=== PATIENT | female | born 1980 | race African-American/Black ===

== ENCOUNTER 2016-07-29 14:15 | Emergency (ER) | payer MEDICAID ==
[~2016-07-29] VITALS: Ht 167.6 cm; Wt 106.5 kg
[~2016-07-29 14:15] MED LIST: ALBU0.086 NEB; AZIT250T43 PO; IPRAAER IN; OSEL75 PO
[2016-07-29 14:20] VITALS: BP 132/94; PULSE 122; RESP 24; TEMP 98.2; O2SAT 90
[2016-07-29 15:47] VITALS: PULSE 100; RESP 22; O2SAT 99
[2016-07-29] MEDS ORDERED: DEXAMETHASONE SOD PHOS 4 MG/ML VIAL IM ONE (16:00)
--- NOTE | 2016-07-29 16:01 | PD ---
HPI Chief Complaint: Respiratory Distress Time Seen by Provider: 15:59 Travel History International Travel<30 days: No Contact w/Intl Traveler<30days: No Traveled to known affect area: No History of Present Illness HPI 35-year-old female presents to the emergency department for evaluation of cough , congestion, intermittent shortness of breath and wheezing that started 1 week ago. She states she has a history of asthma and bronchitis. She states she'll get these symptoms approximately every 3 months. However, her symptoms are typically worse because she waits longer. The patient denies any fevers or chills. She denies any chest pain. No abdominal pain. No vomiting. Patient states she normally gets a nebulizer treatment and injection of steroids. Patient states her symptoms are worse because she had to walk to go to a family members doctors appointment today. She denies any chance of . No other complaints. PFSH Past Medical History Diminished Hearing: No Respiratory: Yes (ASTHMA) Social History Alcohol Use: Yes (3 xs weekly) Tobacco Use: No Substance Use: No Allergies-Medications (Allergen,Severity, Reaction): Coded Allergies: Penicillin (Verified Allergy, Intermediate, 07/29/16) Reported Meds & Prescriptions Reported Meds & Active Scripts Active Reported Albuterol Neb (Albuterol Sulfate) 2.5 Mg/3 Ml Neb 2.5 Mg NEB Q4HR NEB PRN Combivent Respimat Inh (Ipratropium-Albuterol Inh) 20-100 Retirement/Act Aero 1 Puff INH QID Review of Systems Except as stated in HPI: all other systems reviewed are Neg Physical Exam Narrative GENERAL: Well-developed well-nourished female patient, ambulatory. Afebrile. SKIN: Warm and dry. HEAD: Normocephalic. Atraumatic. ENT: Mucosa pink and moist. No erythema or exudates. No uvular edema. No uvular , palatal, or tonsillar deviation. Airway patent. Nasal turbinates appear normal without nasal blood, purulent drainage or septal hematoma. Bilateral tympanic membranes are clear without erythema or perforation. EYES: No scleral icterus. No injection or drainage. NECK: Supple, trachea midline. No JVD or lymphadenopathy. CARDIOVASCULAR: Regular rate and rhythm without murmurs, gallops, or rubs. RESPIRATORY: Breath sounds equal bilaterally. No accessory muscle use. Lungs sounds with slight expiratory wheezes noted. GASTROINTESTINAL: Abdomen soft, non-tender, nondistended. MUSCULOSKELETAL: No cyanosis, or edema. BACK: Nontender without obvious deformity. No CVA tenderness. Data Data Last Documented VS Vital Signs Date Time Temp Pulse Resp B/P Pulse Ox O2 Delivery O2 Flow Rate FiO2 07/29/16 15:47 100 22 99 07/29/16 14:20 98.2 132/94 Room Air Orders Chest, Single Ap (07/29/16 15:59) Albuterol-Ipratropium Neb (Duoneb Neb) (07/29/16 16:00) Dexamethasone Inj (Decadron Inj) (07/29/16 16:00) [facility] Medical Decision Making Medical Screen Exam Complete: Yes Emergency Medical Condition: Yes Medical Record Reviewed: Yes Differential Diagnosis Last Impressions Chest X-Ray 07/29/16 9795 Signed Impressions: Service Date/Time: Friday, July 29, 2016 16:01 - CONCLUSION: No acute disease. Jorje Cr MD Narrative Course 35-year-old female presents to the emergency department for evaluation of cold symptoms for one week. Patient has dry cough on exam, but does appear well. DuoNeb 3 and dexamethasone 8 mg IM are ordered and pending. Chest x-ray is ordered and pending. Chest x-ray shows no acute disease. Upon reexamination, lungs sounds are clear to auscultation. Patient states she feels much better. Patient was discharged prescription for an albuterol inhaler, prednisone, azithromycin. She is encouraged to follow-up with her primary care physician. She is to return for any acute worsening of symptoms. Patient verbalizes agreement and understanding.. Diagnosis Primary Impression: URI (upper respiratory infection) Qualified Code: J06.9 - Upper respiratory tract infection, unspecified type Referrals: Primary Care Physician call for appointment Patient Instructions: General Instructions, Upper Respiratory Infection (ED) Additional Instructions: Take antibiotic as directed until gone. Albuterol inhaler as directed as needed for shortness of breath/wheezing. Take prednisone as directed until gone. Start this tomorrow. Follow-up with your primary care physician. Return to the emergency department for any acute worsening of symptoms. Med/Other Pt SpecificInfo: Prescription(s) given Scripts Azithromycin (Zithromax Z-Prem)250 Mg [id number] Mg PO DIRECTED #1 DSPK Ref 0 500 MG (2 tabs) day 1, then 1 tab days 2-5. Prov:Nicole Mar 07/29/16 Prednisone 20 Mg Tab40 Mg PO DAILY 4 Days Ref 0 Prov:Nicole Mar 07/29/16 Albuterol 18 GM Inh (Ventolin Hfa 18 GM Inh)90 Mcg/Act Aer1 Puff INH Q4H PRN ( SHORTNESS OF BREATH) #1 INHALER Ref 0 Prov:Nicole Mar 07/29/16 Disposition: 01 DISCHARGE HOME Condition: Stable Nicole Mar Jul 29, 2016 16:01
[2016-07-29] MEDS ORDERED: ALBU0.08 NEB (16:15)
[2016-07-29] MEDS ORDERED: IPRAAER INH (16:15)
[2016-07-29] MEDS: RESP: ALBUTEROL 2.5 MG/IPRATROPIUM 0.5 MG NEB (SCH) INH ×2 (16:19→16:20)
--- NOTE | 2016-07-29 16:41 | RADRPT ---
EXAM DATE/TIME: 07/29/2016 16:01 [facility] COMPARISON: No previous studies available for comparison. INDICATIONS : Short of Breath and wheezing MEDICAL HISTORY : Asthma SURGICAL HISTORY : None. ENCOUNTER: Initial ACUITY: 3 days PAIN SCORE: 0/10 LOCATION: Bilateral chest FINDINGS: A single view of the chest demonstrates the lungs to be symmetrically aerated without evidence of mas s, infiltrate or effusion. The cardiomediastinal contours are unremarkable. Osseous structures are intact. CONCLUSION: No acute disease. Jorje Cr MD on July 29, 2016 at 16:39 Board Certified Radiologist. This report was verified electronically.
[2016-07-29] MEDS ORDERED: PRED20 PO (17:25)
[2016-07-29] MEDS ORDERED: ZITHTAB PO (17:25)
[2016-07-29] MEDS ORDERED: VENTAER INH (17:25)
== END 2016-07-29 17:49 | disposition home or self-care (01) ==
LOC: NEPB 14:15
DX: J06.9 Acute upper respiratory infection, unspecified (principal); R05 Cough; R06.02 Shortness of breath; R06.2 Wheezing; Z87.09 Personal history of other diseases of the respiratory system
CPT/HCPCS: 71010; 94640; 94664; 96372; 99284; J1100

== ENCOUNTER 2017-02-28 19:16 | Emergency (ER) | payer SELFPAY ==
[~2017-02-28] VITALS: Ht 167.6 cm; Wt 107.0 kg
[~2017-02-28 19:16] MED LIST changes: +ALBU0.08 NEB; -ALBU0.086 NEB; -AZIT250T43 PO; -IPRAAER IN; +IPRAAER INH; -OSEL75 PO; +PRED20 PO; +VENTAER INH; +ZITHTAB PO
[2017-02-28 19:17] VITALS: BP 165/109; PULSE 112; RESP 20; TEMP 98.9; O2SAT 97
== END 2017-02-28 21:21 | disposition left against medical advice (07) ==
LOC: NED 19:16
DX: R09.89 Other specified symptoms and signs involving the circulatory and respiratory systems (principal)
CPT/HCPCS: 99281